=== PATIENT | male | born 1950 | race Caucasian/White ===

== ENCOUNTER 2018-04-05 13:02 | Emergency (ER) | payer MEDICARE ==
[2018-04-05 14:38] LABS: BASOPHILS % (AUTO) 0.3 % (0.0-5.0); EOSINOPHILS % (AUTO) 0.7 % (0.0-8.0); HEMATOCRIT 42.1 % (42-54); LYMPHOCYTES % (AUTO) 7.7 % (21.0-51.0); MEAN CORPUSCULAR HEMOGLOBIN 32.2 pg (27.0-33.0); MEAN CORPUSCULAR HGB CONC 34.2 g/dL (32.0-36.0); MEAN CORPUSCULAR VOLUME 94.3 fL (79-99); MONOCYTES % (AUTO) 8.2 % (3.0-13.0); NEUTROPHILS % (AUTO) 83.1 % (40.0-77.0); PLATELET COUNT (AUTO) 241 K/uL (130-400); RED BLOOD CELL COUNT(AUTO) 4.47 MIL/uL (4.50-6.20); RED CELL DISTRIBUTION WIDTH 15.3 % (11.0-15.5); WHITE BLOOD COUNT (AUTO) 16.4 K/uL (4.8-10.8)
[2018-04-05 14:49] LABS: CARBON DIOXIDE 29 mmol/L (21-32); CHLORIDE 101 mmol/L (101-111); CREATININE 1.4 mg/dL (0.5-1.5); GLOMERULAR FILTR. RATE CALC 54 mL/min (>60); GLUCOSE,RANDOM 186 mg/dL (70-105); POTASSIUM 4.8 mmol/L (3.5-5.1); SODIUM SERUM 138 mmol/L (136-145); UREA NITROGEN, BLOOD 21 mg/dL (7-18)
[2018-04-05 14:51] LABS: INR 1.11 (0.85-1.15); PARTIAL THROMBOPLASTIN TIME 41.1 SEC (26.3-35.5); PROTHROMBIN TIME 11.6 SEC (9.6-11.6)
[2018-04-05 14:54] LABS: ALANINE AMINOTRANSFERASE 37 U/L (12-78); ALBUMIN 2.8 g/dL (3.5-5.0); ASPARTATE AMINOTRANSFERASE 32 U/L (10-37); BILIRUBIN,TOTAL 0.6 mg/dL (0.2-1.0); CREATINE KINASE, TOTAL 375 U/L (21-232); TOTAL PROTEIN, SERUM 7.3 g/dL (6.0-8.3)
[2018-04-05 15:09] LABS: B-TYPE NATRIURETIC PEPTIDE 93 pg/mL (0-100)
[2018-04-05 15:42] LABS: ERYTHROCYTE SEDIMENTATION RATE 35 MM/HR (0-20)
[2018-04-05 15:47] LABS: CRP QUANTITATIVE > 120.00 mg/L (0.00-9.0)
[2018-04-05] MEDS ORDERED: CLINDAMYCIN 600 MG/D5% WATER 50 ML IV ONE (16:33)
[2018-04-06] MEDS ORDERED: DIGO125T17 PO (16:32)
[2018-04-06] MEDS ORDERED: FISH1CAP20 PO (16:32)
[2018-04-06] MEDS ORDERED: FURO20TA4 PO (16:32)
[2018-04-06] MEDS ORDERED: GLIP5TAB11 PO (16:32)
[2018-04-06] MEDS ORDERED: METF-446 PO (16:32)
[2018-04-06] MEDS ORDERED: RIVA20TA PO (16:32)
[2018-04-06] MEDS ORDERED: CARV12.511 PO (16:32)
[2018-04-06] MEDS ORDERED: LISI40TA4 PO (16:32)
[2018-04-06] MEDS ORDERED: METF500S7 PO (16:32)
[2018-04-06] MEDS ORDERED: INSLAN SQ (16:32)
[2018-04-06] MEDS ORDERED: [UNRECOGNIZED DRUG - CODE] PO (16:32)
== END 2018-04-05 17:37 | disposition home or self-care (01) ==
LOC: EDH 13:02
DX: L03.116 Cellulitis of left lower limb (principal); L03.115 Cellulitis of right lower limb; R60.0 Localized edema; E11.9 Type 2 diabetes mellitus without complications; I11.0 Hypertensive heart disease with heart failure; I50.9 Heart failure, unspecified; I48.91 Unspecified atrial fibrillation; E78.5 Hyperlipidemia, unspecified; Z88.0 Allergy status to penicillin; Z79.899 Other long term (current) drug therapy; Z79.4 Long term (current) use of insulin; Z98.890 Other specified postprocedural states
CPT/HCPCS: 36415; 71045; 80053; 82550; 83880; 84484; 85025; 85610; 85651; 85730; 86140; 87040; 93005; 93970; 96365; 99284; J3490

== ENCOUNTER 2021-07-23 16:09 | Inpatient (IN) | payer MEDICARE ==
[~2021-07-23] VITALS: Ht 185.4 cm; Wt 151.0 kg
[~2021-07-23 16:09] MED LIST: CARV12.511 PO; DIGO125T17 PO; FISH1CAP20 PO; FURO20TA4 PO; GLIP5TAB11 PO; INSLAN SQ; LISI40TA9 PO; METF-446 PO; METF500S7 PO; RIVA20TA PO; [UNRECOGNIZED DRUG - CODE] PO
[2021-07-23] MEDS ORDERED: ACETAMINOPHEN 500 MG TABLET PO ONE (16:30)
[2021-07-23 16:32] LABS: APPEARANCE,URINE Cloudy (CLEAR); BILIRUBIN,URINE Negative (NEGATIVE); COLOR,URINE Yellow (YELLOW); GLUCOSE, URINE (UA) TRACE mg/dL (NEGATIVE); KETONES,URINE Negative (NEGATIVE); LEUKOCYTE ESTERASE ,URINE Moderate (NEGATIVE); NITRATE,URINE Negative (NEGATIVE); OCCULT BLOOD,URINE Large (NEGATIVE); PROTEIN,URINE 300 mg/dL (NEGATIVE)
[2021-07-23 16:46] LABS: BACTERIA,URINE Moderate /HPF (None Seen); MUCUS,URINE Few LPF (None Seen); SQUAMOUS EPITHELIAL CELL,UR Few /HPF (0-2)
[2021-07-23 16:51] LABS: BASOPHILS % (AUTO) 0.3 % (0.0-5.0); EOSINOPHILS % (AUTO) 0.4 % (0.0-8.0); LYMPHOCYTES % (AUTO) 4.2 % (21.0-51.0); MEAN CORPUSCULAR HEMOGLOBIN 29.9 pg (27.0-33.0); MEAN CORPUSCULAR VOLUME 87.9 fL (79-99); NEUTROPHILS % (AUTO) 87.7 % (40.0-77.0); PLATELET COUNT (AUTO) 194 K/uL (130-400); RED BLOOD CELL COUNT(AUTO) 4.89 MIL/uL (4.50-6.20); WHITE BLOOD COUNT (AUTO) 18.1 K/uL (4.8-10.8)
[2021-07-23] MEDS ORDERED: 0.9%NACL 1000ML 1,000 ML IV ONE (17:00)
[2021-07-23] MEDS ORDERED: CEFTRIAXONE 1G VIAL IVP ONE (17:00)
[2021-07-23] MEDS ORDERED: VANCOMYCIN 1G VIAL IVPB ONE (17:00)
[2021-07-23 17:07] LABS: POTASSIUM 4.9 mmol/L (3.5-5.1)
[2021-07-23] MEDS ORDERED: 0.9%NACL 50ML 50 ML IV ONE (17:08)
[2021-07-23 17:12] LABS: ALBUMIN 3.3 g/dL (3.5-5.0); BILIRUBIN,TOTAL 1.4 mg/dL (0.2-1.0); TOTAL PROTEIN, SERUM 7.6 g/dL (6.0-8.3)
[2021-07-23] MEDS ORDERED: 0.9% NACL 250ML 250 ML ONE (17:20)
[2021-07-23] MEDS ORDERED: VANCOMYCIN 1G/250ML KIT 250 ML IV ONE (17:20)
[2021-07-23] MEDS ORDERED: VANCOMYCIN PROTOCOL PER PHARMACY IV PRN (19:30)
[2021-07-23] MEDS ORDERED: 0.9%NACL 1000ML 2,397 ML IV ONE (19:30)
[2021-07-23] MEDS ORDERED: HYDROCODONE/ACETAMINOPHEN 5/325 MG TAB PO PRN ×2 (19:30)
[2021-07-23] MEDS ORDERED: ACETAMINOPHEN 325 MG TAB PO PRN (19:30)
[2021-07-23] MEDS ORDERED: ONDANSETRON 4MG INJ IV PRN (19:30)
[2021-07-23] MEDS ORDERED: COMPOUND IV REFRIGERATED 1 EACH IVSOLN MISC PRN (20:00)
[2021-07-23] MEDS: CEFTRIAXONE 1G VIAL IV SCH ×2 (20:32→20:38)
[2021-07-23] MEDS: HEPARIN 5,000 UNIT VIAL SQ SCH (20:39)
[2021-07-23 21:50] VITALS: BP 134/69
[2021-07-23] MEDS ORDERED: RIVA15TA PO (21:56)
[2021-07-23] MEDS ORDERED: INSLAN SQ (21:56)
[2021-07-23] MEDS ORDERED: INSU100I15 SQ (21:56)
[2021-07-23] MEDS ORDERED: SODI325T PO (21:56)
[2021-07-23] MEDS ORDERED: ROSU20TA31 PO (21:56)
[2021-07-23 23:23] VITALS: BP 104/57
[2021-07-24 03:28] VITALS: BP 107/57
[2021-07-24 04:09] LABS: BASOPHILS % (AUTO) 0.3 % (0.0-5.0); HEMATOCRIT 37.5 % (42-54); LYMPHOCYTES % (AUTO) 4.7 % (21.0-51.0); MEAN CORPUSCULAR HEMOGLOBIN 29.6 pg (27.0-33.0); MEAN CORPUSCULAR HGB CONC 33.6 g/dL (32.0-36.0); MEAN CORPUSCULAR VOLUME 88.2 fL (79-99); MONOCYTES % (AUTO) 7.2 % (3.0-13.0); NEUTROPHILS % (AUTO) 86.8 % (40.0-77.0); PLATELET COUNT (AUTO) 171 K/uL (130-400); RED BLOOD CELL COUNT(AUTO) 4.25 MIL/uL (4.50-6.20); RED CELL DISTRIBUTION WIDTH 15.3 % (11.0-15.5)
[2021-07-24 04:19] LABS: CREATININE 2.2 mg/dL (0.5-1.5); MAGNESIUM 1.4 mg/dL (1.80-2.40); PHOSPHORUS 3.1 mg/dL (2.5-4.9); POTASSIUM 4.6 mmol/L (3.5-5.1)
[2021-07-24 04:33] LABS: HEMOGLOBIN A1C 7.8 % (4.0-6.0)
[2021-07-24] MEDS: INSULIN HUMULIN R 100 UNIT/ML 3ML SQ SCH ×4 (06:23→21:14)
[2021-07-24 07:45] VITALS: BP 105/60
[2021-07-24] MEDS: SODIUM BICARBONATE 650 MG TAB PO SCH (08:35)
[2021-07-24] MEDS: FUROSEMIDE 20 MG TABLET PO SCH (08:35)
[2021-07-24] MEDS: HEPARIN 5,000 UNIT VIAL SQ SCH (08:35)
[2021-07-24] MEDS: CARVEDILOL 12.5 MG TABLET PO SCH ×2 (08:36→20:46)
[2021-07-24] MEDS: FAMOTIDINE 20MG TAB PO SCH (08:36)
[2021-07-24] MEDS: FISH OIL 1000 MG/CAP PO SCH (08:36)
[2021-07-24] MEDS ORDERED: VANCOMYCIN 1.5GM/NS 250ML IV SCH ×2 (09:00)
[2021-07-24 11:15] VITALS: BP 125/57
[2021-07-24] MEDS: MAGNESIUM 2GM PREMIX 50ML 50 ML IV SCH (11:30)
[2021-07-24] MEDS: CEFTRIAXONE 1G VIAL IV SCH ×2 (12:33→23:29)
[2021-07-24 16:05] VITALS: BP 137/63
[2021-07-24] MEDS: LINEZOLID 600 MG/ISO-OSM 300 ML IV SCH (16:19)
[2021-07-24 19:29] VITALS: BP 131/76
[2021-07-24] MEDS: ATORVASTATIN 40 MG TABLET PO SCH (20:45)
[2021-07-24 23:35] VITALS: BP 152/80
[2021-07-25] MEDS: LINEZOLID 600 MG/ISO-OSM 300 ML IV SCH ×2 (03:18→17:08)
[2021-07-25 03:21] VITALS: BP 125/62
[2021-07-25] MEDS: INSULIN HUMULIN R 100 UNIT/ML 3ML SQ SCH ×4 (05:31→20:00)
[2021-07-25 05:33] LABS: BASOPHILS % (AUTO) 0.3 % (0.0-5.0); EOSINOPHILS % (AUTO) 0.6 % (0.0-8.0); HEMATOCRIT 35.5 % (42-54); LYMPHOCYTES % (AUTO) 5.1 % (21.0-51.0); MEAN CORPUSCULAR HEMOGLOBIN 30.2 pg (27.0-33.0); MEAN CORPUSCULAR HGB CONC 33.8 g/dL (32.0-36.0); MEAN CORPUSCULAR VOLUME 89.2 fL (79-99); MONOCYTES % (AUTO) 5.8 % (3.0-13.0); NEUTROPHILS % (AUTO) 87.5 % (40.0-77.0); PLATELET COUNT (AUTO) 134 K/uL (130-400); RED BLOOD CELL COUNT(AUTO) 3.98 MIL/uL (4.50-6.20); RED CELL DISTRIBUTION WIDTH 16.2 % (11.0-15.5); WHITE BLOOD COUNT (AUTO) 17.9 K/uL (4.8-10.8)
[2021-07-25 06:07] LABS: ALBUMIN 2.3 g/dL (3.5-5.0); BILIRUBIN,TOTAL 0.8 mg/dL (0.2-1.0); CREATININE 2.8 mg/dL (0.5-1.5); MAGNESIUM 2.2 mg/dL (1.80-2.40); POTASSIUM 4.2 mmol/L (3.5-5.1); TOTAL PROTEIN, SERUM 6.1 g/dL (6.0-8.3)
[2021-07-25 06:38] LABS: CRP QUANTITATIVE 268.7 mg/L (0.00-9.0)
[2021-07-25 06:45] LABS: ERYTHROCYTE SEDIMENTATION RATE 60 MM/HR (0-20)
[2021-07-25 08:00] VITALS: BP 133/78
[2021-07-25] MEDS: FISH OIL 1000 MG/CAP PO SCH (08:45)
[2021-07-25] MEDS: FUROSEMIDE 20 MG TABLET PO SCH (08:45)
[2021-07-25] MEDS: CARVEDILOL 12.5 MG TABLET PO SCH ×2 (08:46→20:02)
[2021-07-25] MEDS: SODIUM BICARBONATE 650 MG TAB PO SCH (08:46)
[2021-07-25] MEDS: FAMOTIDINE 20MG TAB PO SCH (08:46)
[2021-07-25] MEDS: LACTATED RINGERS 1000ML 1,000 ML IV SCH ×2 (11:30→20:40)
[2021-07-25] MEDS: CEFTRIAXONE 1G VIAL IV SCH (11:30)
[2021-07-25 12:00] VITALS: BP 153/54
[2021-07-25 16:00] VITALS: BP 167/86
[2021-07-25 18:19] LABS: PROTEIN,URINE RANDOM 86.3 mg/dL (0-11.9)
[2021-07-25 20:00] VITALS: BP 157/96
[2021-07-25] MEDS: ATORVASTATIN 40 MG TABLET PO SCH (20:02)
[2021-07-25] MEDS: NIFEDIPINE 10 MG CAP PO SCH (20:03)
[2021-07-25] MEDS ORDERED: RIVAROXABAN 15 MG TABLET PO SCH (21:00)
[2021-07-26] VITALS: BP 115/55
[2021-07-26] MEDS: CEFTRIAXONE 1G VIAL IV SCH ×2 (00:07→12:56)
[2021-07-26] MEDS: LINEZOLID 600 MG/ISO-OSM 300 ML IV SCH (03:21)
[2021-07-26 04:00] VITALS: BP 149/68
[2021-07-26 05:21] LABS: BASOPHILS % (AUTO) 0.2 % (0.0-5.0); EOSINOPHILS % (AUTO) 1.5 % (0.0-8.0); LYMPHOCYTES % (AUTO) 6.7 % (21.0-51.0); MEAN CORPUSCULAR HEMOGLOBIN 29.9 pg (27.0-33.0); MEAN CORPUSCULAR HGB CONC 33.8 g/dL (32.0-36.0); MEAN CORPUSCULAR VOLUME 88.3 fL (79-99); MONOCYTES % (AUTO) 6.5 % (3.0-13.0); NEUTROPHILS % (AUTO) 84.2 % (40.0-77.0); PLATELET COUNT (AUTO) 142 K/uL (130-400); RED BLOOD CELL COUNT(AUTO) 3.85 MIL/uL (4.50-6.20)
[2021-07-26 05:56] LABS: CREATININE 2.6 mg/dL (0.5-1.5); MAGNESIUM 1.7 mg/dL (1.80-2.40); PHOSPHORUS 3.3 mg/dL (2.5-4.9)
[2021-07-26] MEDS: MAGNESIUM 2GM PREMIX 50ML 50 ML IV SCH (06:25)
[2021-07-26] MEDS: INSULIN HUMULIN R 100 UNIT/ML 3ML SQ SCH ×2 (06:47→12:57)
[2021-07-26 08:02] VITALS: BP 136/84
[2021-07-26] MEDS: NIFEDIPINE 10 MG CAP PO SCH ×2 (09:00→13:53)
[2021-07-26] MEDS: FISH OIL 1000 MG/CAP PO SCH (09:00)
[2021-07-26] MEDS: SODIUM BICARBONATE 650 MG TAB PO SCH (09:00)
[2021-07-26] MEDS: CARVEDILOL 12.5 MG TABLET PO SCH (09:00)
[2021-07-26] MEDS: FUROSEMIDE 20 MG TABLET PO SCH (09:01)
[2021-07-26] MEDS: FAMOTIDINE 20MG TAB PO SCH (09:01)
[2021-07-26 11:36] VITALS: BP 134/76
== END 2021-07-26 14:08 | DRG 872 ==
LOC: EDH 16:09 → EDHIP 19:14 → 4DH 20:40
PROVIDERS: ADMIT Internal Medicine; ATTEND Internal Medicine
DX: A41.50 Gram-negative sepsis, unspecified (principal); N39.0 Urinary tract infection, site not specified; L03.115 Cellulitis of right lower limb; I13.0 Hypertensive heart and chronic kidney disease with heart failure and stage 1 through stage 4 chronic kidney disease, or unspecified chronic kidney disease; Z68.41 Body mass index [BMI] 40.0-44.9, adult; L03.116 Cellulitis of left lower limb; N17.9 Acute kidney failure, unspecified; N18.32 Chronic kidney disease, stage 3b; E78.5 Hyperlipidemia, unspecified; M19.90 Unspecified osteoarthritis, unspecified site; G47.33 Obstructive sleep apnea (adult) (pediatric); I48.91 Unspecified atrial fibrillation; E11.65 Type 2 diabetes mellitus with hyperglycemia; Z96.653 Presence of artificial knee joint, bilateral; E66.01 Morbid (severe) obesity due to excess calories; B96.20 Unspecified Escherichia coli [E. coli] as the cause of diseases classified elsewhere; I50.9 Heart failure, unspecified; Z85.528 Personal history of other malignant neoplasm of kidney; E78.00 Pure hypercholesterolemia, unspecified; I25.10 Atherosclerotic heart disease of native coronary artery without angina pectoris; Z90.81 Acquired absence of spleen; Z90.5 Acquired absence of kidney; Z79.01 Long term (current) use of anticoagulants; Z82.5 Family history of asthma and other chronic lower respiratory diseases
CPT/HCPCS: 36415; 71045; 76770; 80048; 80053; 81001; 82570; 82948; 83036; 83605; 83735; 84100; 84145; 84156; 84300; 85025; 85651; 86140; 87040; 87077; 87088; 87186; 93005; 93970; 99291; G0378; J0696; J1644; J1815; J2020; J3370; J3475; J7030; J7050; J7120

== ENCOUNTER 2025-03-29 08:41 | Emergency (ER) | payer MEDICARE ==
[~2025-03-29] VITALS: Ht 185.4 cm; Wt 137.0 kg
[~2025-03-29 08:41] MED LIST changes: -DIGO125T17 PO; -FURO20TA4 PO; -GLIP5TAB11 PO; -INSLAN SQ; -LISI40TA9 PO; -METF-446 PO; -METF500S7 PO; +RIVA15TA PO; -RIVA20TA PO; +ROSU20TA98 PO; +SODI325T PO; -[UNRECOGNIZED DRUG - CODE] PO
[2025-03-29 08:43] VITALS: BP 137/75; PULSE 58; RESP 18; TEMP 98.7
--- NOTE | 2025-03-29 09:04 | NUR ---
DOG BITE REPORTED TO [facility] [employer] [facility], SPOKE TO MATTHEW FROM DISPATCH.
--- NOTE | 2025-03-29 09:24 | NUR ---
[facility] AT THE BEDSIDE.
--- NOTE | 2025-03-29 09:29 | NUR ---
PT INCIDENT REPORT TAKEN BY Marclel KAISER FROM [facility] [employer], .
[2025-03-29] MEDS ORDERED: DOXY100C5 PO (09:59)
--- NOTE | 2025-03-29 09:59 | ERN ---
ED Note History of Present Illness Stated Complaint: DOG Chief Complaint: Animal Bite Time Seen by MD: 09:01 Dictation: 74-year-old male presenting to the emergency department for superficial dog bite to the left lower leg, patient reports dog is from neighbors vaccines are all up-to-date and was a small bite from a large lab dog. Allergies: Coded Allergies: Penicillins (Verified Allergy, Unknown, 04/06/18) amlodipine (Unverified Allergy, Unknown, 03/29/25) hydrochlorothiazide (Unverified Allergy, Unknown, SHORTNESS OF BREATH, 03/29/25) Home Meds Reported Medications Rosuvastatin Calcium (Rosuvastatin Calcium) 20 Mg Tablet, 20 MG PO HS, TAB 07/23/21 Sodium Bicarbonate (Sodium Bicarbonate) 325 Mg Tablet, 325 MG PO DAILY, TAB 07/23/21 Rivaroxaban (Xarelto) 15 Mg Tablet, 15 MG PO HS, TAB 07/23/21 [place]-3 Fatty Acids/Fish Oil (Fish Oil 1000 mg/Cap) 1,000 Mg/Cap Capsule, 2000 MG PO DAILY, CAP 04/06/18 Carvedilol (Carvedilol) 12.5 Mg Tablet, 12.5 MG PO BID, TAB 04/06/18 Past Medical History Past Medical History: A-Fib, Cancer, Diabetes-Type II, High Cholesterol, Hypertension Additional Past Medical Hx: KIDNEY CA Surgical History: Other Surgical History Other: SLEENECTOMY, LT NEPHRECTOMY Social History: Negative, Lives with family Review of System Dictation Constitutional: Negative for fever,chills, and weight loss Eyes: Negative for injury, pain,redness, and discharge ENT: Negative for injury,pain or swelling Cardiovascular: Negative for chest pain, palpitations, and edema Respiratory: Negative for shortness of breath, cough, and wheezing, Abdomen/GI: Negative for abdominal pain, nausea, vomiting, diarrhea, and constipation Back: Negative for injury and pain : Negative for injury, bleeding and discharge MS/Extremity: Per HPI Skin: Per HPI Neuro: Negative for headache, weakness, numbness, tingling, and seizure Initial Vital Sign VS Vital Signs Date Time Temp Pulse Resp B/P (MAP) Pulse Ox O2 Delivery O2 Flow Rate FiO2 03/29/25 08:43 98.8 58 18 137/75 98 Room Air 0 Physical Exam Dictation General: awake, alert, NAD Head/Face: Normocephalic, atraumatic Eyes: PERRL, EOMI, vision at baseline ENT: oral cavity clear, TMs clear, no signs of infection Neck: Trachea midline, supple, no nuchal rigidity Cardiovascular: RRR, normal S1/S2, No MRGs, no JVD Respiratory: CTAB, no respiratory distress, No rales or wheezes Abdomen: Soft, non-tender, non-distended, normal bowel sounds, no guarding or rebound. Skin: Warm, dry, normal turgor, no rash, superficial bite to left lateral calf area MS/Extremity: Pulses equal, no cyanosis, neurovascular intact, FROM Neuro: COAx4, GCS 15, strength 5/5, CN 2-12 intact, normal cerebellar exam, normal gait, Psych: Normal behavior, mood, and affect normal ED Course ED Course Vital Signs Date Time Temp Pulse Resp B/P (MAP) Pulse Ox O2 Delivery O2 Flow Rate FiO2 03/29/25 08:43 98.8 58 18 137/75 98 Room Air 0 Medical Decision Making MDM MDM: Differential diagnosis: Rationale: Tests considered and ordered secondary to shared decision making include: Previous outside records reviewed: Old ER visits. Risk of complication and/or morbidity or mortality of patient management: None Medications-Per medication reconciliation Need for hospitalization: Patient does not meet criteria for hospitalization. Need for emergency major/minor surgery: No There are no social concerns with this patient. Prescription drug management Prescriptions will include symptomatic care Patient's prior external medical records from other ER visits were reviewed by me as indicated. Prior testing and results from previous visits were reviewed. Prior tests were taken into account with medical decision making and resource utilization, independent historian/historians were used to obtain complete medical history. I independently interpreted the test that were performed, results were reviewed by me and considered findings on radiology if ordered. Medical management and examination interpretation discussions were had by me with other qualified healthcare professionals as indicated for the patient's care. 74-year-old male with superficial dog bite dog is up-to-date with rabies vaccine patient is allergic to penicillins placed on alternative antibiotics stable for discharge. DX & DISP Disposition: Discharge Departure Impression: Primary Impression: Dog bite of left lower leg Condition: Stable Scripts Doxycycline Hyclate (Doxycycline Hyclate) 100 Mg Capsule 1 CAP PO BID for 5 Days, #10 CAP 0 Refills Prov: KIRAN MATIAS MD 03/29/25 Referrals: MICHAEL BRUNSON MD (PCP) KIRAN MATIAS MD Mar 29, 2025 09:59
--- NOTE | 2025-03-29 10:50 | NUR ---
WOUND CARE WITH WITH [facility] CLEANSE AND NORMAL SALINE, APPLIED BACITRACIN,DRESSED WITH NON ADHERET DRESSING AND KERLIX, PT TOLERATED WELL.
[2025-03-29] MEDS: BACITRACIN 1 EACH PACKET TP ONE (10:57)
[2025-03-29] MEDS ORDERED: BACITRACIN 1 EACH PACKET TP ONE (11:00)
== END 2025-03-29 10:54 | disposition home or self-care (01) ==
LOC: EDH 08:41
DX: S81.852A Open bite, left lower leg, initial encounter (principal); E11.9 Type 2 diabetes mellitus without complications; E78.00 Pure hypercholesterolemia, unspecified; I10 Essential (primary) hypertension; I48.91 Unspecified atrial fibrillation; Z88.0 Allergy status to penicillin; Z88.8 Allergy status to other drugs, medicaments and biological substances; Z79.899 Other long term (current) drug therapy; Z85.528 Personal history of other malignant neoplasm of kidney; Z90.5 Acquired absence of kidney; W54.0XXA Bitten by dog, initial encounter; Y93.89 Activity, other specified; Y92.89 Other specified places as the place of occurrence of the external cause; Y99.8 Other external cause status
CPT/HCPCS: 99283